=== PATIENT | female | born 1985 | race Two or more races ===

== ENCOUNTER 2016-11-10 18:22 | Emergency (ER) | payer OTHER ==
[~2016-11-10] VITALS: Ht 177.8 cm; Wt 94.2 kg
[2016-11-10] MEDS ORDERED: AUGMENTIN 875 MG TAB PO ONE (20:00)
[2016-11-10 20:01] VITALS: BP 112/66
[2016-11-10] MEDS ORDERED: AUGM875T28 PO (20:01)
== END 2016-11-10 20:09 | disposition home or self-care (01) ==
LOC: M ED 18:22
DX: K04.7 Periapical abscess without sinus (principal); K02.9 Dental caries, unspecified; F17.210 Nicotine dependence, cigarettes, uncomplicated

== ENCOUNTER → 2022-02-21 | Outpatient (REF) ==
[~2022-02-21] MED LIST: AUGM875T28 PO
== END ==
LOC: M LAB 15:02
PROVIDERS: ATTEND Nurse Practitioner Adult Health
DX: Z01.89 Encounter for other specified special examinations (principal)